=== PATIENT | female | born 1960 ===

== ENCOUNTER 2024-02-21 09:32 | Outpatient (CLI) | payer OTHER | END 2024-02-21 10:02 | disposition home or self-care (01) | LOC: TOM 09:32 | DX: I77.9 Disorder of arteries and arterioles, unspecified (principal) | CPT/HCPCS: 70496; 70498; Q9965 ==

== ENCOUNTER 2024-02-29 06:30 | Day surgery (SDC) | payer OTHER ==
[2024-02-29] MEDS ORDERED: DIPHENHYDRAMINE HCL 50 MG/ML VIAL 1ML IV ONE (09:30)
[2024-02-29] MEDS ORDERED: fentaNYL CITRATE 50 MCG/ML AMPUL IV ONE (09:30)
[2024-02-29] MEDS ORDERED: MIDAZOLAM HCL 2 MG/2 ML VIAL IV ONE (09:30)
[2024-02-29] MEDS ORDERED: ENALAPRILAT DIHYDRATE 2.5 MG/2 ML VIAL IV ONE (10:00)
== END 2024-02-29 11:25 | disposition home or self-care (01) ==
LOC: AMB-ENDOS 06:30
PROVIDERS: ATTEND Surgery
DX: K63.5 Polyp of colon (principal); K57.30 Diverticulosis of large intestine without perforation or abscess without bleeding